=== PATIENT | female | born 1960 | race Two or more races ===

== ENCOUNTER 2020-05-17 16:01 | Emergency (ER) | payer MEDICARE, MEDICAID ==
[2020-05-17] MEDS ORDERED: Ondansetron 4 MG Tab.DIS PO ONE (16:30)
--- NOTE | 2020-05-17 16:55 | EDM.PDOC ---
ED HPI GENERAL MEDICAL PROBLEM - General Chief Complaint: Abdominal Pain Stated Complaint: DIZZY/VOMITING/SWEATS Time Seen by Provider: 05/17/20 16:15 Source of Information: Reports: Patient, RN Notes Reviewed History Limitations: Reports: No Limitations - History of Present Illness INITIAL COMMENTS - FREE TEXT/NARRATIVE: Patient is a 59-year-old female who presents to the ED for the evaluation of her dizziness/vomiting/sweating. Patient notes that she was on 150 mg of venlafaxine prescribed by Dr. Otoole, and noted she was having some adverse side effects like bad dreams, so she stopped taking this medication 5 days ago cold turkey. These are Medication so She Did Not Cut Them in Half. Patient Notes That Today Now She Is Just Not Really Feeling Well, She Is Feeling Nauseous Had Some Vomiting Episodes Feeling Slightly Dizzy, She Called [facility] to See If They Could Give Her a Prescription for Nausea Meds, but They Told Her to Come to the ER to Be Evaluated. Patient Does Have a History of COPD, CHF, and a Heart Attack in 2019. Patient's states she is not having any chest pain, no fevers or chills, cough or shortness of breath. She was scared to eat because she thought maybe she would vomit the food back up. - Related Data Allergies Allergy/AdvReac Type Severity Reaction Status Date / Time sacubitril [From Entresto] Allergy Severe Facial Verified 05/17/20 16:15 Swelling valsartan [From Entresto] Allergy Severe Facial Verified 05/17/20 16:15 Swelling Home Meds: Home Meds Ondansetron [Zofran ODT] 4 mg PO Q8H PRN #15 tab.dis 05/17/20 [Rx] Past Medical History Cardiovascular History: Reports: Heart Failure, Hypertension, [place] (2019) Respiratory History: Reports: COPD, Other (See Below) Other Respiratory History: lung nodule Musculoskeletal History: Reports: Osteoarthritis Psychiatric History: Reports: Anxiety, Depression Social & Family History - Tobacco Use Tobacco Use Status *Q: Former Tobacco User Used Tobacco, but Quit: Yes Month/Year Tobacco Last Used: 2019 - Recreational Drug Use Recreational Drug Use: No ED ROS GENERAL - Review of Systems Review Of Systems: Comprehensive ROS is negative, except as noted in HPI. ED EXAM, GENERAL - Physical Exam Exam: See Below Exam Limited By: No Limitations General Appearance: Alert, WD/WN, No Apparent Distress, Anxious (generalized and very minimal) Respiratory/Chest: No Respiratory Distress, Lungs Clear, Normal Breath Sounds, No Accessory Muscle Use, Chest Non-Tender Cardiovascular: Normal Peripheral Pulses, Regular Rate, Rhythm, No Edema Peripheral Pulses: 2+: Radial (L), Radial (R) GI/Abdominal: Normal Bowel Sounds, Soft, Non-Tender, No Distention, No Mass Extremities: Normal Inspection, Normal Capillary Refill Neurological: Alert, Oriented, Normal Cognition, No Motor/Sensory Deficits Psychiatric: Normal Affect, Normal Mood Skin Exam: Warm, Dry, Intact, Normal Color, No Rash Course - Vital Signs Last Recorded V/S: Last Vital Signs Temp 97.6 F 05/17/20 16:12 Pulse 90 05/17/20 16:12 Resp 16 05/17/20 16:12 BP 177/108 H 05/17/20 16:12 Pulse Ox 97 05/17/20 16:12 - Orders/Labs/Meds Meds: Medications Discontinued Medications Generic Name Dose Route Start Last Admin Trade Name Whitney PRN Reason Stop Dose Admin Ondansetron HCl 4 mg 05/17/20 16:30 05/17/20 16:58 Zofran Odt PO 05/17/20 16:31 4 mg ONETIME ONE Administration - Re-Assessments/Exams Free Text/Narrative Re-Assessment/Exam: 05/17/20 16:54 Patient presents to the ED for the evaluation of her nausea, dizziness, and sweating. I do highly suspect that she is having some withdrawals from the venlafaxine medication, I did explain to her that she should call Dr. Adames to try to figure out a different medication that would work better for her if she was having adverse effects. She notes that she was taking the venlafaxine for roughly 2 weeks before she did want to take it anymore due to the intense nightmares she was having. 05/17/20 17:23 Patient states that she is feeling better after the Zofran, we will go ahead and get her discharged. Departure - Departure Time of Disposition: 17:23 Disposition: Home, Self-Care 01 Condition: Good Clinical Impression: Medication withdrawal Qualifiers: Substance type: other psychoactive substance Qualified Code(s): F19.939 - Other psychoactive substance use, unspecified with withdrawal, unspecified - Discharge Information *PRESCRIPTION DRUG MONITORING PROGRAM REVIEWED*: No *COPY OF PRESCRIPTION DRUG MONITORING REPORT IN PATIENT TRINITY: No Prescriptions: Ondansetron [Zofran ODT] 4 mg PO Q8H PRN #15 tab.dis PRN Reason: Nausea Instructions: Nausea and Vomiting, Adult, [id number] Referrals: PCP,None [Primary Care Provider] - Forms: ED Department Discharge Additional Instructions: You were seen in this ER today for your nausea/dizziness. This is thought likely to be due to the withdrawal from the venlafaxine medication that you stop taking roughly 5 days ago. You were given a dose of oral Zofran in the ER, this seemed to help your symptoms quite a bit. You were given a few tablets of this for the next few days, until you can get an appointment with Dr. Otoole to be evaluated for medication purposes. Recommend you stick to somewhat of a clear liquid diet over the next few days if you are feeling nauseous, fluids like Gatorade/Powerade or Pedialyte would be sufficient to get some electrolytes rather than just free water. Please return to the ER at any time if your symptoms change or worsen. Sepsis Event Note (ED) - Evaluation Sepsis Screening Result: No Definite Risk - Focused Exam Vital Signs: Vital Signs Temp Pulse Resp BP Pulse Ox 05/17/20 16:12 97.6 F 90 16 177/108 H 97
== END 2020-05-17 17:40 | disposition home or self-care (01) ==
LOC: JD.ED 16:01
DX: F19.239 Other psychoactive substance dependence with withdrawal, unspecified (principal); I11.0 Hypertensive heart disease with heart failure; I50.9 Heart failure, unspecified; J44.9 Chronic obstructive pulmonary disease, unspecified; I25.2 Old myocardial infarction; Z87.891 Personal history of nicotine dependence; Z88.8 Allergy status to other drugs, medicaments and biological substances
CPT/HCPCS: 99283; A9270

== ENCOUNTER 2024-11-12 15:30 | Emergency (ER) | payer MEDICARE, MEDICAID | END 2024-11-12 16:50 | disposition home or self-care (01) | LOC: JD.ED 15:30 | DX: S92.511A Displaced fracture of proximal phalanx of right lesser toe(s), initial encounter for closed fracture (principal); I11.0 Hypertensive heart disease with heart failure; I50.9 Heart failure, unspecified; J44.9 Chronic obstructive pulmonary disease, unspecified; F17.210 Nicotine dependence, cigarettes, uncomplicated; I25.2 Old myocardial infarction; Z88.8 Allergy status to other drugs, medicaments and biological substances; W22.8XXA Striking against or struck by other objects, initial encounter; Y93.89 Activity, other specified | CPT/HCPCS: 73660-26-T8; 73660-T8; 99283 ==